=== PATIENT | female | born 1960 | race Hispanic/Latino ===

== ENCOUNTER 2017-06-30 11:07 | Outpatient (CLI) | payer OTHER ==
--- NOTE | 2017-06-30 11:46 | Mammography Report ---
Screening mammogram: Asymmetric upper outer left circumscribed nodule with asymmetry of fibroglandular tissue. The remainder of the breast pattern is generally fatty replaced bilaterally and these findings are unchanged since 2015. CAD used. Impression: Stable breast pattern. Recommendation: Annual mammogram followup. BI-RADS CATEGORY: 1 = Negative ACR BI-RADS MAMMOGRAPHIC CODES: 0 = Needs additional imaging evaluation; 1 = Negative; 2 = Benign; 3 = Probably benign; 4 = Suspicious; 5 = Malignant; 6 = Known biopsy-proven malignancy COMMENT: 1. Dense breast tissue, i.e., adenosis, fibrocystic changes, etc., may obscure an underlying neoplasm. 2. Approximately 10% of cancers are not detected with mammography. 3. A negative mammography report should not delay biopsy if a clinically suspicious mass is present.
== END 2017-06-30 11:08 | disposition home or self-care (01) ==
LOC: SPVWC 11:07
PROVIDERS: ATTEND Obstetrics & Gynecology
DX: Z12.31 Encounter for screening mammogram for malignant neoplasm of breast (principal)
CPT/HCPCS: 77067; G0202

== ENCOUNTER 2019-07-01 15:28 | Outpatient (CLI) | payer OTHER ==
--- NOTE | 2019-07-01 16:33 | Mammography Report ---
DIGITAL SCREENING MAMMOGRAM WITH CAD, 07/01/2019 INDICATION: Routine screening mammography. TECHNIQUE: Digital bilateral 2D mammography was obtained in the craniocaudal and mediolateral obliq ue projections. This examination was interpreted with the benefit of Computer-Aided Detection analysi s. COMPARISON: 06/30/2017 and 04/04/2015 FINDINGS: Breast Density: The breasts are heterogeneously dense, which may obscure small masses. There is no evidence of dominant mass, suspicious calcifications or architectural distortion in eithe r breast. IMPRESSION: No mammographic evidence of malignancy. Follow up recommendation: Routine yearly BI-RADS Category 1: Negative. A "normal" or negative report should not discourage follow up or biopsy of a clinically significant f inding. A written summary of these findings will be mailed to the patient. The patient will be entered into a mammography reporting system which will generate a reminder letter for the patient's next appointmen t at the appropriate interval. The [employer] recommends yearly mammograms starting at age 40 and continuing as l kathi as a woman is in good health. Breast MRI is recommended for women with an approximate 20-25% or greater lifetime risk of breast cancer, including women with a strong family history of breast or ova gamaliel cancer or who have been treated for Hodgkin's disease. Signer Name: Jeffrey Garcia MD Signed: 07/01/2019 4:29 PM Workstation Name: [id number]
== END 2019-07-01 15:29 | disposition home or self-care (01) ==
LOC: SPVWC 15:28
PROVIDERS: ATTEND Obstetrics & Gynecology
DX: Z12.31 Encounter for screening mammogram for malignant neoplasm of breast (principal)
CPT/HCPCS: 77067

== ENCOUNTER 2021-07-23 10:10 | Outpatient (CLI) | payer OTHER ==
--- NOTE | 2021-07-24 16:40 | Mammography Report ---
DIGITAL SCREENING MAMMOGRAM WITH TOMOSYNTHESIS WITH CAD, 07/23/2021 CLINICAL INFORMATION / INDICATION: Routine Screening Mammography. TECHNIQUE: Digital bilateral 2D and 3D mammography with tomosynthesis was obtained in the craniocaud al and mediolateral oblique projections. Computer-Aided Detection (CAD) analysis was used for interp retation of this study. COMPARISON: 07/01/2019 FINDINGS: Breast Density: There are scattered areas of fibroglandular density. No dominant mass, suspicious calcifications, or architectural distortion in either breast. No interval change. IMPRESSION: No mammographic evidence of malignancy. Follow up recommendation: Routine yearly BI-RADS Category 1: Negative. A "normal" or negative report should not discourage follow up or biopsy of a clinically significant f inding. A written summary of these findings will be mailed to the patient. The patient will be entered into a mammography reporting system which will generate a reminder letter for the patient's next appointmen t at the appropriate interval. The [employer] recommends yearly mammograms starting at age 40 and continuing as l kathi as a woman is in good health. Breast MRI is recommended for women with an approximate 20-25% or greater lifetime risk of breast cancer, including women with a strong family history of breast or ova gamaliel cancer or who have been treated for Hodgkin's disease. Signer Name: Cornelia Shea MD Signed: 07/24/2021 4:36 PM Workstation Name: [email or web address]
== END 2021-07-23 10:11 | disposition home or self-care (01) ==
LOC: SPVWC 10:10
PROVIDERS: ATTEND Obstetrics & Gynecology
DX: Z12.31 Encounter for screening mammogram for malignant neoplasm of breast (principal)
CPT/HCPCS: 77063; 77067